=== PATIENT | male | born 2000 | race Caucasian/White ===

== ENCOUNTER 2020-12-26 19:36 | Emergency (ER) | payer MEDICAID, SELFPAY ==
[2020-12-26 19:38] VITALS: BP 114/55; PULSE 55; RESP 18; TEMP 36.7; O2SAT 98; BMI 25.8
--- NOTE | 2020-12-26 22:07 | EDS_ITS ---
HPI HPI - GI History of Present Illness Chief Complaint: Abd Pain Informant: patient Abdominal Pain/Flank Pain Onset: Today Context: Gradual Onset Timing: Waxes and wanes Quality: Aching Location: Diffuse Worsened by: Nothing Relieved by: Nothing Nausea/Vomiting/Emesis GI Symptom: Positive for Nausea and Vomiting Diarrhea/Melena/Hematochezia GI Symptom: Positive for Diarrhea; Negative for Melena and Hematochezia Associated Symptoms Associated Symptoms: Negative for Dysuria and Hematuria Narrative Narrative: Patient presents with abdominal pain, nausea, and vomiting that began today. Patient states his pain is diffuse across the abdomen. Patient describes it as aching. Patient states it waxes and wanes. Patient states nothing makes it worse and nothing makes it better. Patient admits to some nausea and vomiting. Patient denies any hematemesis or coffee-ground emesis. Patient admits to diarrhea. Patient denies any melena or hematochezia. Patient denies any dysuria or hematuria. Patient denies any fevers or chills. PFSH PFSH Medical History no medical history no medical history Home Medications NK 12/26/20 [History Last Taken Unknown] ondansetron 4 mg PO Q8H PRN PRN #10 tab 12/26/20 [Rx Last Taken Unknown] Allergy/AdvReac Type Severity Reaction Status Date / Time No Known Allergies Allergy Verified 12/26/20 19:39 Surgical History no surgical history no surgical history Social History Smoking Status: Never smoker ROS ROS ED Constitutional Constitutional ED: Denies chills or fever(s) Eyes Eyes: Denies blurry vision or change in vision ENT ENT ED: Reports rhinorrhea; Denies sore throat Cardiovascular Cardiovascular: Denies chest pain or palpitations Respiratory/Chest Respiratory/Chest: Reports cough and dyspnea Gastrointestinal Gastrointestinal: Reports abdominal pain, nausea and vomiting Genitourinary Genitourinary ED: Denies dysuria or hematuria Musculoskeletal Musculoskeletal: Reports back pain; Denies neck pain Integumentary Denies abscess or rash Neurologic Neurologic: Denies headache(s) or weakness Allergic/Immunologic Allergic/Immunologic ED: Denies mouth swelling or urticaria EXAM Physical Exam Const Vital Signs: 12/26/20 19:38 12/26/20 22:36 Temperature 98.1 F Temperature Source Temporal Pulse Rate 55 L 47 L Respiratory Rate 18 18 Blood Pressure 114/55 L 112/55 L Blood Pressure Mean 74 74 Pulse Ox 98 Positive well nourished and well developed General Appearance ED: well developed HEENT Reports moist mucous membranes Neck supple and no JVD Resp normal respiratory effort and clear to auscultation bilaterally Cardio regular rate, regular rhythm and no murmurs GI normal to inspection, nondistended, normoactive bowel sounds and non-distended Auscultation: normoactive bowel sounds Palpation: soft and tender other (There is mild diffuse tenderness. There is no rebound or guarding noted.); Negative for guarding or rebound tenderness present Extremity normal to inspection General Extremety ED: Negative for edema or tenderness General Extremity: Negative for edema Neuro oriented x3, CN's II-XII intact bilaterally and no sensory deficits noted Sensorium / Orientation: alert Motor Exam: strength 5/5 throughout Psych mental status grossly normal Skin no rashes or lesions noted MDM MDM MDM Narrative Medical decision making narrative: Patient was given IV fluids and Zofran. After the patient was given Zofran, he became bradycardic and pale. Patient was laid flat. Patient was started to feel better after IV fluids running in. CBC and comprehensive metabolic profile were obtained were within normal limits. Lipase was normal. Patient was feeling better on reevaluation. Patient was advised that this is most likely a viral gastroenteritis. Patient was instructed to start with small amounts of fluids and increase his diet as he starts to feel better. Patient was given a prescription for Zofran. Patient was instructed to follow-up with his primary care physician in 5 to 7 days. Patient understood and was agreeable with the plan. All questions were answered. Lab Data Attestation: I reviewed the patient's lab results. Labs: Laboratory Results - last 24 hr 12/26/20 12/26/20 22:20 22:20 WBC 8.0 RBC 3.96 L Hgb 12.4 L Hct 38.9 L MCV 98.2 H MCH 31.3 MCHC 31.9 L RDW Std Deviation 46.5 H RDW Coeff of Izabella 12.9 Plt Count 236 MPV 10.0 Immature Gran % (Auto) 0.400 Neut % (Auto) 49.3 Lymph % (Auto) 38.2 [place] % (Auto) 8.2 Eos % (Auto) 3.4 Baso % (Auto) 0.5 Absolute Neuts (auto) 4.0 Absolute Lymphs (auto) 3.07 Nucleated RBC % 0 Sodium 142 Potassium 3.7 Chloride 109 H Carbon Dioxide 29.0 Anion Gap 4 L BUN 9 Creatinine 0.84 Estim Creat Clear Calc 140.28 Est GFR (MDRD) Af Amer 149 Est GFR (MDRD) Non-Af 123 BUN/Creatinine Ratio 10.7 Glucose 90 Calcium 9.0 Total Bilirubin 0.20 AST 17 ALT 17 Alkaline Phosphatase 59 Total Protein 6.5 Albumin 3.5 Globulin 3.0 Albumin/Globulin Ratio 1.2 Lipase 101 Discharge Plan Triage Chief Complaint: Abd Pain ED Provider: Yann Pena Dx/Rx/DC Orders Clinical Impression: Viral gastroenteritis Instructions: ED Gastroenteritis, Viral (Adult) Prescriptions: New ondansetron [ondansetron] 4 MG tablet 4 mg PO Q8H PRN PRN (Reason: Nausea) Qty: 10 RF: 0 No Action NK RF: 0 Primary Care Provider: Care Physician,No Primary Referrals: Lana Alcantar [NON-STAFF] - 5-7 Days Care Physician,No Primary [Primary Care Provider] -
[2020-12-26] MEDS: Ondansetron 4 MG/2 ML Vial IV (22:25)
[2020-12-26] MEDS: 0.9% Normal Saline 1,000 ML 1000 ML IV (22:25)
[2020-12-26 22:28] LABS: Absolute Lymphocyte Count 3.07 X10^3/uL (0.83-4.51); Basophil# 0.04 X10^3/uL; Basophil% 0.5 % (0-1); Eosinophil# 0.27 X10^3/uL; Eosinophils% 3.4 % (0-5); Hematocrit 38.9 % (40-54); Hemoglobin 12.4 g/dL (13.0-16.5); Lymphocyte # 3.07 X10^3/ul (0.83-4.51); Lymphocyte % 38.2 % (19-41); Mean Corp Hgb Conc 31.9 g/dL (32-36); Mean Corpuscular Hgb 31.3 pg (27.0-32.0); Mean Corpuscular Volume 98.2 fL (80-94); Monocyte# 0.66 X10^3/uL; Monocyte% 8.2 % (0-10); NRBC Flagged by Analyzer 0 % (0-5); Neutrophil # 3.97 X10^3/uL (2.7-7.7); Neutrophil % 49.3 % (47-70); Platelet Count 236 K/mm3 (150-450); RBC Distribution Width CV 12.9 % (11.6-14.6); RBC Distribution Width SD 46.5 fl (35.1-43.9); Red Blood Count 3.96 M/mm3 (4.6-6.2)
[2020-12-26 22:36] VITALS: BP 112/55; PULSE 47; RESP 18
[2020-12-26 22:49] LABS: ALB/GLOB Ratio 1.2 RATIO (0.9-2.4); AST(SGOT) 17 U/L (15-37); Alanine Aminotransfer ALT/SGPT 17 U/L (16-61); Albumin, Serum 3.5 g/dL (3.2-5.0); Alkaline Phosphatase 59 U/L (45-117); Anion Gap 4 (5-15); BUN 9 mg/dL (7-18); BUN/Creat Ratio 10.7 RATIO (10-20); Chloride 109 mmol/L (98-107); Creatinine, Serum 0.84 mg/dL (0.70-1.30); EST Glomerular Filtration Rate 123 mL/min (>60); Est Glom Filt Rate - Afr Amer 149 mL/min (>60); Estimated Creatinine Clearance 140.28 ml/min; Glucose 90 mg/dL (74-106); Lipase 101 U/L (73-393); Potassium 3.7 mmol/L (3.5-5.1); Protein, Total 6.5 g/dL (6.4-8.2); Sodium Level 142 mmol/L (136-145)
[2020-12-27] VITALS: BP 121/78; PULSE 61; RESP 16; O2SAT 98
== END 2020-12-27 00:03 | disposition home or self-care (01) ==
PROVIDERS: Emergency Provider Emergency Medicine
DX: A08.4 Viral intestinal infection, unspecified (principal)
CPT/HCPCS: 80053; 83690; 85025; 96361; 96374; 99283; J7030; A4216; J2405